=== PATIENT | female | born 1965 | race African-American/Black ===

== ENCOUNTER 2018-06-07 17:10 | Emergency (ER) | payer OTHER ==
--- NOTE | 2018-06-07 17:21 | PDOC ---
Rapid Medical Evaluation Medical Evaluation: Allergies Allergy/AdvReac Type Severity Reaction Status Date / Time shrimp Allergy Verified 12/13/15 21:06 I have performed a brief in-person evaluation of this patient. The patient presents with a chief complaint of: C/O R eye pain, tearing, redness from today. Denies DICKEY, n/v, blurry vision, FB sensation Pertinent physical exam findings: +Mild injection R eye with tearing of eye The patient will proceed to the ED for further evaluation. 06/07/18 17:20
[2018-06-07 17:24] VITALS: BP 140/92; PULSE 85; TEMP 97.9; BMI 40.2
--- NOTE | 2018-06-07 18:03 | PDOC ---
History of Present Illness - General Chief Complaint: Eye Problem Stated Complaint: EYE PROBLEM Time Seen by Provider: 06/07/18 17:44 History Source: Patient Exam Limitations: No Limitations - History of Present Illness Initial Comments: CHIEF COMPLAINT: 53 y/o afebrile female with PMH HTN c/o right eye itching, burning and watery today. HISTORY OF PRESENT ILLNESS: The patient also admits to runny nose and sinus pressure. She took a claritin today but needs something that is going to work "right now". She denies fever, changes in vision, trauma to eye, crusting on eyelids, swelling to eyes, cough, sore throat, n/v/d, CP, SOB, dizziness. The patient does not wear contact lenses. Vital signs on arrival are within normal limits. REVIEW OF SYSTEMS: GENERAL/CONSTITUTIONAL: No fever/chills. No weakness. No weight change. HEAD, EYES, EARS, NOSE AND THROAT: +right eye itching, burning and watery. + runny nose. +sinus pressure. No change in vision. No ear pain or discharge. No sore throat. NEUROLOGIC: No headache, vertigo, loss of consciousness, or loss of sensation. PHYSICAL EXAM: GENERAL: The patient is awake, alert, and fully oriented, in no acute distress. HEAD: Normal with no signs of trauma. Minimal TTP of right frontal sinus. ENT: Pupils equal, round and reactive to light, extraocular movements intact, sclera anicteric, right conjunctiva mildly injected. No proptosis or ptosis. No entrapment. No orbital swelling. Nose without discharge. NEUROLOGICAL: Normal speech, normal gait. CN II-XII grossly intact. Past History - Past Medical History Allergies/Adverse Reactions: Allergies Allergy/AdvReac Type Severity Reaction Status Date / Time shrimp Allergy Verified 06/07/18 17:20 Home Medications: Ambulatory Orders Olopatadine HCl [Patanol] 1 drop OD BID #20 drops 06/07/18 CVA: No COPD: No CHF: No - Immunization History Immunization Up to Date: Yes - Suicide/Smoking/Psychosocial Hx Smoking History: Never smoked Hx Alcohol Use: No Drug/Substance Use Hx: No *Physical Exam - Vital Signs Last Vital Signs Temp Pulse Resp BP Pulse Ox 97.9 F 85 16 140/92 100 06/07/18 17:20 06/07/18 17:20 06/07/18 17:20 06/07/18 17:20 06/07/18 17:20 Moderate Sedation - Procedure Monitoring Vital Signs: Procedure Monitoring Vital Signs Temperature 97.9 F 06/07/18 17:20 Pulse Rate 85 06/07/18 17:20 Respiratory Rate 16 06/07/18 17:20 Blood Pressure 140/92 06/07/18 17:20 O2 Sat by Pulse Oximetry (%) 100 06/07/18 17:20 Medical Decision Making - Medical Decision Making A/P: 53 y/o female with allergic conjunctivitis and nasal congestion with runny nose and sinus pressure. Will give PO ibuprofen in the ER. Will send rx for Patanol eye drops. Will suggest OTC Flonase nasal spray and OTC doris. Pt instructed to f/u with DR. Small if symptoms persist despite medication and return to the ER with any worsening or concerning symptoms. The patient verbalizes understanding of all instructions, has no further questions and is awaiting discharge. *DC/Admit/Observation/Transfer Diagnosis at time of Disposition: Sinus pressure Allergic conjunctivitis and rhinitis Qualifiers: Laterality: right Qualified Code(s): H10.11 - Acute atopic conjunctivitis, right eye; J30.9 - Allergic rhinitis, unspecified - Discharge Dispostion Disposition: HOME Condition at time of disposition: Good - Referrals Referrals: Yovanny Small MD [Primary Care Provider] - Call tomorrow - Patient Instructions Printed Discharge Instructions: DI for Conjunctivitis, DI for Allergic Rhinitis Additional Instructions: Discharge Instructions: -A prescription for eye drops has been sent to your pharmacy; please take as prescribed for 7 days -You can take over the counter Flonase for runny nose/nasal congestion -You can take over the counter doris for sinus pressure -You can take 800mg of over the counter Ibuprofen every 8 hours for pain with food -Drink at least 64oz of water daily -Follow up with Dr. Small in 1 week if no improvement in symptoms despite medication -Return to the ER with any worsening or concerning symptoms - Post Discharge Activity Forms/Work/School Notes: Back to Work
[2018-06-07] MEDS ORDERED: IBUPROFEN 400 MG TABLET (FP) PO ONE ×2 (18:04→18:15)
== END 2018-06-07 18:24 | disposition home or self-care (01) ==
LOC: JERFT 17:10
DX: H10.11 Acute atopic conjunctivitis, right eye (principal); J30.9 Allergic rhinitis, unspecified
CPT/HCPCS: 99281-25

== ENCOUNTER 2019-03-01 16:27 | Emergency (ER) | payer OTHER ==
[2019-03-01 16:46] VITALS: BP 148/93; PULSE 78; TEMP 98.3; BMI 34.4
--- NOTE | 2019-03-01 16:56 | PDOC ---
Rapid Medical Evaluation Time Seen by Provider: 03/01/19 16:54 Medical Evaluation: Allergies Allergy/AdvReac Type Severity Reaction Status Date / Time shrimp Allergy Verified 03/01/19 16:42 Vital Signs Temp Pulse Resp BP Pulse Ox 98.3 F 78 18 148/93 99 03/01/19 16:43 03/01/19 16:43 03/01/19 16:43 03/01/19 16:43 03/01/19 16:43 03/01/19 16:55 Patient c/o: upper abd burning x 3 days, no other complaints Patient on brief exam:mild epigastric tenderness, no ruq tenderness, vss Patient ordered for: labs patient to proceed to the ED Discharge Disposition - Diagnosis Epigastric abdominal pain - Referrals - Patient Instructions - Post Discharge Activity
[2019-03-01] MEDS ORDERED: RANITIDINE HCL 150 MG TABLET (FP) PO ONE (17:41)
[2019-03-01] MEDS ORDERED: MAG HYDROX/AL HYDROX/SIMETH 30 ML UNIT-DOSE CUP PO ONE (17:41)
[2019-03-01 18:09] LABS: HEMATOCRIT 41.2 % (32.4-45.2); HEMOGLOBIN 13.5 GM/dL (10.7-15.3); LYMPH % 37.4 % (8-40); MCH 28.2 pg (25.7-33.7); MCHC 32.8 g/dl (32.0-36.0); MEAN CELL VOLUME 86.1 fl (80-96); MEAN PLT VOLUME 8.8 fl (7.5-11.1); MONO % 6.6 % (3.8-10.2); PLATELET COUNT 279 K/MM3 (134-434); RBC 4.79 M/mm3 (3.60-5.2); RDW 14.3 % (11.6-15.6); WHITE BLOOD COUNT 7.1 K/mm3 (4.0-10.0)
[2019-03-01 18:10] LABS: ALBUMIN 3.6 g/dl (3.4-5.0); BILIRUBIN,TOTAL 0.3 mg/dL (0.2-1); BLOOD UREA NITROGEN 14.8 mg/dL (7-18); CALCIUM 9.3 mg/dL (8.5-10.1); MAGNESIUM 2.5 mg/dL (1.8-2.4); PH,URINE 5.5 (5.0-8.0); POTASSIUM 4.3 mmol/L (3.5-5.1); TOT PROT 7.1 g/dl (6.4-8.2); URINE APPEARANCE CLEAR; URINE BILIRUBIN NEGATIVE (NEGATIVE); URINE COLOR YELLOW; URINE GLUCOSE (UA) NEGATIVE (NEGATIVE); URINE KETONE NEGATIVE (NEGATIVE); URINE LEUK ESTERASE NEGATIVE (NEGATIVE); URINE NITRITE NEGATIVE (NEGATIVE); URINE PROTEIN NEGATIVE (NEGATIVE); URINE UROBILINOGEN 0.2 mg/dL (0.2-1.0)
--- NOTE | 2019-03-01 18:10 | PDOC ---
History of Present Illness - General Chief Complaint: Pain Stated Complaint: ABD/PAIN Time Seen by Provider: 03/01/19 16:54 History Source: Patient Exam Limitations: No Limitations Past History - Past Medical History Allergies/Adverse Reactions: Allergies Allergy/AdvReac Type Severity Reaction Status Date / Time shrimp Allergy Verified 03/01/19 16:42 Home Medications: Ambulatory Orders Ketotifen Fumarate [Zaditor] 1 drop OD BID #20 drops 06/07/18 Olopatadine HCl [Patanol] 1 drop OD BID #20 drops 06/07/18 CVA: No COPD: No CHF: No - Immunization History Immunization Up to Date: Yes - Suicide/Smoking/Psychosocial Hx Smoking History: Never smoked Hx Alcohol Use: No Drug/Substance Use Hx: No *Physical Exam - Vital Signs Last Vital Signs Temp Pulse Resp BP Pulse Ox 98.3 F 78 18 148/93 99 03/01/19 16:43 03/01/19 16:43 03/01/19 16:43 03/01/19 16:43 03/01/19 16:43 - Physical Exam General Appearance: No: Apparent Distress Respiratory/Chest: positive: Lungs Clear, Normal Breath Sounds. negative: Respiratory Distress Cardiovascular: positive: Regular Rhythm, Regular Rate, S1, S2. negative: Murmur Gastrointestinal/Abdominal: positive: Tender (more along RUQ), Soft. negative: Distended, Guarding, Rebound, Hernia, Mass Musculoskeletal: negative: CVA Tenderness Neurologic: positive: Alert, Normal Mood/Affect ED Treatment Course - LABORATORY CBC & Chemistry Diagram: 03/01/19 17:22 03/01/19 17:22 - RADIOLOGY Radiology Studies Ordered: Category Date Time Status ABDOMEN US -LIMITED [US] Stat Ultrasound 03/01/19 17:40 Taken Medical Decision Making - Medical Decision Making 53 y/o F hx of sleep apnea, HTN presents with generalized abd pain, more along upper abdomen which started 2 days after eating a chicken roll which had been left out (unsure if it was possibly bad). Initially thought her symptoms were more constipation so took a laxative, but did not feel difference with that. States drank some Thyme tea which helped a lot with pain. Denies fever, sob, cp , vomiting, diarrhea, urinary complaints. Denies prior abdominal/pelvic surgeries. Possible gastritis; also r/o cholecystitis, cholelithiasis, pancreatitis Plan: labs, zantac, maalox, RUQ sono, reassess 03/01/19 18:08 Labs reviewed and unremarkable RUQ sono - no gallstones, minimal GB thickening (per radiologist, could be physiologic in nature) Patient appears comfortable, currently in no pain stable for dc 03/01/19 18:54 *DC/Admit/Observation/Transfer Diagnosis at time of Disposition: Epigastric abdominal pain - Discharge Dispostion Disposition: HOME Condition at time of disposition: Stable Decision to Admit order: No - Referrals Referrals: Yovanny Small MD [Primary Care Provider] - 2 Days - Patient Instructions Printed Discharge Instructions: DI for Gastritis, DI for Epigastric Pain Additional Instructions: Thank you for choosing [facility]. It was a pleasure taking care of you. Take Pepcid 20 mg twice a day in case you need for your symptoms Avoid NSAIDs like Motrin, Naprosyn for now Follow-up with your doctor in 2 days Return to the Emergency Department if your symptoms worsen or persist, you have fever, shortness of breath, chest pain, severe abdominal pain, vomiting or other concerning symptoms. - Post Discharge Activity
[2019-03-01] MEDS ORDERED: RANITIDINE HCL 150 MG TABLET (FP) ONE (18:19)
[2019-03-01] MEDS ORDERED: MAG HYDROX/AL HYDROX/SIMETH 30 ML UNIT-DOSE CUP ONE (18:19)
== END 2019-03-01 19:18 | disposition home or self-care (01) ==
LOC: JER 16:27
DX: R10.13 Epigastric pain (principal); I10 Essential (primary) hypertension
CPT/HCPCS: 36415; 76705-TC; 80053; 81003; 83690; 83735; 85025; 87086; 99282-25

== ENCOUNTER 2019-04-08 08:30 | Inpatient (IN) | payer OTHER ==
[2019-04-04 17:09] VITALS: BMI 38.4
[2019-04-08] MEDS ORDERED: MIDAZOLAM HCL 2 MG/2 ML SINGLE DOSE VIAL ONE (08:34)
[2019-04-08] MEDS ORDERED: DEXAMETHASONE SOD PHOSPHATE/PF 10 MG/ML SDV ONE (08:34)
[2019-04-08] MEDS ORDERED: BUPIVACAINE HCL/PF 0.5% (5 MG/ML) 30 ML VIAL IJ ONE (08:34)
--- NOTE | 2019-04-08 09:26 | HP ---
Admitting History and Physical - Admission Chief Complaint: Morbid obesity History Source: Patient Limitations to Obtaining History: No Limitations - Past Medical History Cardiovascular: Yes: HTN Pulmonary: Yes: Sleep Apnea - Past Surgical History Additional Past Surgical History: Keloid excision D+C - Smoking History Smoking history: Never smoked - Alcohol/Substance Use Hx Alcohol Use: No Home Medications - Allergies Allergies/Adverse Reactions: Allergies Allergy/AdvReac Type Severity Reaction Status Date / Time shrimp Allergy Verified 03/01/19 16:42 seasonal Allergy Uncoded 04/04/19 17:02 - Home Medications Home Medications: Ambulatory Orders Amlodipine Besylate [Norvasc -] 5 mg PO DAILY 04/04/19 Losartan Potassium [Cozaar -] 25 mg PO DAILY 04/04/19 Multivitamin [Zoo Chews] 1 each PO DAILY 04/04/19 Docusate Sodium [Colace -] 100 mg PO TID #90 capsule 04/08/19 Famotidine [Pepcid] 20 mg PO BID #60 tablet 04/08/19 Ondansetron [Zofran -] 8 mg PO TID #30 tablet 04/08/19 Oxycodone HCl/Acetaminophen [Percocet 5-325 mg Tablet] 1 - 2 tab PO Q6H #28 tab MDD 4 04/08/19 Family Medical History Family History: Unremarkable Review of Systems - Review of Systems Constitutional: denies: Chills, Fever Neck: reports: No Symptoms Cardiovascular: reports: No Symptoms Respiratory: reports: No Symptoms Gastrointestinal: reports: No Symptoms Neurological: reports: No Symptoms Pain Intensity: 0 Physical Examination Vital Signs: Vital Signs Temperature 98.5 F 04/08/19 08:54 Pulse Rate 80 04/08/19 08:54 Respiratory Rate 18 04/08/19 08:54 Blood Pressure 138/92 04/08/19 08:54 O2 Sat by Pulse Oximetry (%) Constitutional: Yes: Calm Neck: Yes: WNL Cardiovascular: Yes: WNL Respiratory: Yes: Regular Gastrointestinal: Yes: Soft, Abdomen, Obese Neurological: Yes: Alert, Oriented Problem List - Problems (1) Morbid obesity due to excess calories Problems reviewed: Yes Code(s): E66.01 - MORBID (SEVERE) OBESITY DUE TO EXCESS CALORIES (2) BMI 38.0-38.9,adult Problems reviewed: Yes Code(s): Z68.38 - BODY MASS INDEX (BMI) 38.0-38.9, ADULT (3) Sleep apnea Code(s): G47.30 - SLEEP APNEA, UNSPECIFIED Qualifiers: Sleep apnea type: unspecified type Qualified Code(s): G47.30 - Sleep apnea , unspecified Assessment/Plan Laparoscopic possible open vertical sleeve gastrectomy possible liver biopsy, upper endoscopy
[2019-04-08] MEDS ORDERED: PROPOFOL 20 ML ONE ×2 (09:52)
[2019-04-08] MEDS ORDERED: ROCURONIUM BROMIDE 50 MG/5 ML SYRINGE ONE (09:52)
[2019-04-08] MEDS ORDERED: BUPIVACAINE HCL 0.25% 125 MG/50 ML VIAL ONE (10:10)
[2019-04-08] MEDS ORDERED: PHENYLEPHRINE HCL 10 MG/1 ML SINGLE DOSE VIAL ONE (10:49)
[2019-04-08] MEDS ORDERED: ePHEDrine SULFATE 50 MG/1 ML AMPULE ONE (10:56)
[2019-04-08] MEDS ORDERED: EPHEDRINE SULFATE/0.9% NACL/PF 50 MG/10 ML SYRINGE NR ONE (10:57)
[2019-04-08] MEDS ORDERED: FAMOTIDINE 20 MG/50 ML IVPB 20 MG/50 ML MG IVPB ONE (11:14)
[2019-04-08] MEDS ORDERED: METOCLOPRAMIDE HCL INJECTION 10 MG/2 ML VIAL ONE (11:14)
[2019-04-08] MEDS ORDERED: ONDANSETRON 4 MG/2 ML VIAL ONE (11:14)
[2019-04-08] MEDS ORDERED: ACETAMINOPHEN INJECTION 100 ML IVPB ONE (11:14)
[2019-04-08] MEDS ORDERED: BUPIVACAINE HCL/PF 0.25% (2.5MG/ML) 10 ML VIAL IJ ONE (11:20)
[2019-04-08] MEDS ORDERED: GLYCOPYRROLATE 0.2 MG/1 ML VIAL ONE (11:43)
[2019-04-08] MEDS ORDERED: NEOSTIGMINE METHYLSULFATE 0.5 MG/ML - 10 ML MDV ONE (11:43)
[2019-04-08] MEDS ORDERED: ceFAZolin SODIUM 1 GM VIAL ONE (11:43)
--- NOTE | 2019-04-08 11:54 | OP ---
Operative Note - Note: Operative Date: 04/08/19 Pre-Operative Diagnosis: Morbid obesity. BMI 38. Sleep apnea Operation: Diagnostic laparoscopy. Laparoscopic vertical sleeve gastrectomy. Laparoscopic wedge liver biopsy Post-Operative Diagnosis: Same as Pre-op (as well as hepatomegaly) Surgeon: Warner Yang Real Time Trader: Jordan Fontanez Anesthesia: General Specimens Removed: Greater curvature of stomach. Liver biopsy Estimated Blood Loss (mls): 30 Drains & Tubes with Location: 36 Fr Bougie Operative Report Dictated: Yes
[2019-04-08] MEDS ORDERED: SODIUM CHLORIDE 1,000 ML IV SCH (12:00)
[2019-04-08] MEDS ORDERED: METOCLOPRAMIDE HCL INJECTION 10 MG/2 ML VIAL IVPUSH SCH (12:00)
[2019-04-08] MEDS ORDERED: ACETAMINOPHEN 1000 MG/100 ML VIAL (NON FORMULARY) IVPB SCH (12:00)
[2019-04-08] MEDS ORDERED: ONDANSETRON 4 MG/2 ML VIAL IVPUSH SCH (12:00)
[2019-04-08] MEDS ORDERED: FAMOTIDINE 20 MG PREMIXED IVPB IVPB ONE (12:15)
[2019-04-08] MEDS ORDERED: LACTATED RINGERS SOLUTION 1,000 ML IV SCH (12:15)
[2019-04-08 13:42] LABS: HEMATOCRIT 41.6 % (32.4-45.2); HEMOGLOBIN 13.8 GM/dl (10.7-15.3); MCH 28.6 pg (25.7-33.7); MCHC 33.2 g/dl (32.0-36.0); MEAN CELL VOLUME 86.1 fl (80-96); MEAN PLT VOLUME 8.5 fl (7.5-11.1); PLATELET COUNT 310 K/MM3 (134-434); RBC 4.83 M/mm3 (3.60-5.2); WHITE BLOOD COUNT 13.2 K/mm3 (4.0-10.8)
[2019-04-08 14:26] LABS: ALBUMIN 3.8 g/dl (3.4-5.0); BILIRUBIN,TOTAL 0.4 mg/dl (0.2-1); CALCIUM 8.9 mg/dl (8.5-10); CREATININE 0.9 mg/dl (0.55-1.3); TOT PROT 7.2 g/dl (6.4-8.2)
[2019-04-08] MEDS: KCL 10 MEQ IVPB 10 MEQ/100 ML INFUS.BAG IVPB SCH ×3 (15:34→21:06)
--- NOTE | 2019-04-08 15:50 | SPEC ---
DATE OF OPERATION: 04/08/2019 SURGEON: Jenna Yang MD INSURANCE CODER: Jordan Fontanez MD PLACE OF SERVICE: [facility], [address] [place] [address] PREOPERATIVE DIAGNOSES: 1. Morbid obesity. 2. Body mass index of 13.4. 3. Obstructive sleep apnea. POSTOPERATIVE DIAGNOSES: 1. Morbid obesity. 2. Body mass index of 13.4. 3. Obstructive sleep apnea. 4. Hepatomegaly. PROCEDURES: 1. Diagnostic laparoscopy. 2. Laparoscopic vertical sleeve gastrectomy. 3. Laparoscopic wedge liver biopsy. SPECIMENS: 1. Greater curvature of the stomach. 2. Liver biopsy. ESTIMATED BLOOD LOSS: 30 mL. DRAINS: None. ANESTHESIA: GET. BOUGIE SIZE: 36-Kinyarwanda. REASON FOR PROCEDURE: This 54-year-old female presents to the office for weight loss options. After describing different options, she decided to proceed with a laparoscopic, possible open, vertical sleeve gastrectomy, possible liver biopsy, upper endoscopy. The patient was seen by the respective subspecialties and cleared for surgery. The risks and benefits of the procedure were explained. These included bleeding, infection, hernia, CA, DVT, PE, injury to surrounding structures including the liver, colon, bowel, spleen, esophagus, vessel injury, nerve injury, weight regain, gastric leak, staple line leak, sleeve leak, obstruction, vitamin deficiency, hair loss and as some of the possible complications. The patient understood and signed informed consent. DESCRIPTION OF PROCEDURE: The patient was placed supine on the operating room table. The patient underwent general endotracheal intubation. The arms were brought out at 90 degrees and secured. A footboard was placed and the legs were secured laterally with padding. The abdomen was prepped and draped in the usual sterile fashion. A timeout was performed. An incision was made in the left upper quadrant and a Veress needle inserted. Pneumoperitoneum was established. Subsequently, the Veress needle was removed and a 5-mm trocar was placed under direct visualization with the laparoscope. The laparoscopic camera was then inserted and inspection of the abdominal cavity was performed. An incision was then made in the supraumbilical area and a 15-mm trocar was placed under direct visualization. A 5-mm trocar was then placed in the right upper quadrant and a 5-mm trocar was placed below the left subcostal margin. A stab wound was made in the subxiphoid area and a Amada clamp inserted and removed to dilate the tract. A Radha liver retractor was inserted. The post was secured at the bedside by the nursing staff. The patient was placed in steep reverse Trendelenburg position and the Radha liver retractor was used to secure the liver towards the anterior abdominal wall. The pylorus was identified and 6 cm proximal to it, the lesser sac was entered using the LigaSure device. All lateral attachments to the greater curvature of the stomach, including the short gastric vessels, were ligated using the LigaSure device toward the gastrosplenic and gastrophrenic ligaments. Once this was done in its entirety, it was confirmed that all tubes within the nasal or oropharyngeal cavity, including a temperature probe were removed by Anesthesia. The bougie was then inserted by Anesthesia. Transection of the stomach was then begun staying adjacent to the bougie but away from the angularis. Transection of the stomach was performed near the portion of the stomach where the lesser sac was entered. Two laparoscopic Endo-DIONE black tom were used at this location. Laparoscopic Endo DIONE purple staple loads were then used for the remainder of the transection until the greater curvature of the stomach was fully transected. This was done staying close to the bougie. Care was taken to stay away from the angle of His cephalad. The staple line was then inspected. Hemostasis was identified. A leak test was then performed. It was clamped distally to the staple line. Irrigation solution was placed in the left upper quadrant and air was insufflated by Anesthesia into the sleeve. No leaks were identified. No obstruction was identified. This was done through the entirety of the staple line. The stomach was suctioned and the bougie removed fully intact under direct visualization. At this point, the irrigation solution was suctioned and again, hemostasis was noted. A wedge liver biopsy was then performed. The left lobe of the liver was identified. A portion of the edge of the left lobe of the liver was grasped. Using electrocautery, a wedge of the left liver was excised. The specimen was removed and sent off the field. Hemostasis of the wedge liver biopsy site was attained and noted using electrocautery. The 15-mm supraumbilical trocar was then removed and the greater curvature specimen removed from the site using a sponge stick gil. A Erick-Mathew device was then used to close the fascia with a 0 Vicryl suture at the site. Again, hemostasis was noted. The Radha liver retractor was then removed under direct visualization. Pneumoperitoneum was desufflated. Hemostasis was noted at all incision sites and Marcaine was injected at all incision sites. A 3-0 Vicryl suture was used to close the deep subcutaneous tissue at the 15-mm incision site. All incision sites were closed using 4-0 Biosyn. Sterile dressings were applied. The patient tolerated the procedure well and was transferred to the recovery room in stable condition. JENNA YANG M.D. TRACEE/[id number]
[2019-04-08] MEDS: HYDROmorphone HCL CARPU-JECT 1 MG/1 ML DISP.SYRIN IVPB PRN (15:55)
[2019-04-08] MEDS: ONDANSETRON 4 MG/2 ML VIAL IVPUSH SCH ×3 (17:14→23:41)
[2019-04-08] MEDS: METOCLOPRAMIDE HCL INJECTION 10 MG/2 ML VIAL IVPUSH SCH ×2 (18:47→23:41)
[2019-04-08] MEDS: ACETAMINOPHEN 1000 MG/100 ML VIAL (NON FORMULARY) IVPB SCH ×2 (20:30→23:41)
[2019-04-08] MEDS: FAMOTIDINE 20 MG/50 ML IVPB 20 MG/50 ML MG IVPB SCH (21:05)
[2019-04-08] MEDS: ENOXAPARIN NA (PORCINE) 40 MG/0.4 ML DISP.SYRIN SQ SCH (21:05)
[2019-04-09] MEDS: HYDROmorphone HCL CARPU-JECT 1 MG/1 ML DISP.SYRIN IVPB PRN (05:24)
[2019-04-09] MEDS: ONDANSETRON 4 MG/2 ML VIAL IVPUSH SCH ×3 (05:24→13:53)
[2019-04-09] MEDS: ACETAMINOPHEN 1000 MG/100 ML VIAL (NON FORMULARY) IVPB SCH (05:35)
[2019-04-09 07:07] LABS: HEMOGLOBIN 12.4 GM/dl (10.7-15.3); MCHC 32.7 g/dl (32.0-36.0); MEAN CELL VOLUME 85.6 fl (80-96); MEAN PLT VOLUME 8.3 fl (7.5-11.1); PLATELET COUNT 292 K/MM3 (134-434); RBC 4.44 M/mm3 (3.60-5.2); RDW 12.9 % (11.6-15.6); WHITE BLOOD COUNT 12.5 K/mm3 (4.0-10.8)
[2019-04-09] MEDS: METOCLOPRAMIDE HCL INJECTION 10 MG/2 ML VIAL IVPUSH SCH ×2 (07:10→13:53)
[2019-04-09 07:24] LABS: ALBUMIN 3.5 g/dl (3.4-5.0); BILIRUBIN,TOTAL 0.5 mg/dl (0.2-1); CREATININE 0.8 mg/dl (0.55-1.3); TOT PROT 6.7 g/dl (6.4-8.2)
--- NOTE | 2019-04-09 07:43 | DS ---
Physical Exam: SUBJECTIVE: Patient seen and examined OBJECTIVE: Vital Signs Temperature 98.6 F 04/09/19 05:00 Pulse Rate 101 H 04/09/19 05:00 Respiratory Rate 19 04/09/19 05:00 Blood Pressure 137/74 04/09/19 05:00 O2 Sat by Pulse Oximetry (%) 100 04/09/19 06:35 PHYSICAL EXAM GENERAL: The patient is awake, alert, and fully oriented, in no acute distress. HEAD: Normal with no signs of trauma. EYES: PERRL, extraocular movements intact, sclera anicteric, conjunctiva clear. NECK: Trachea midline LUNGS: Breath sounds equal, clear to auscultation bilaterally, no wheezes, no crackles, no accessory muscle use. HEART: Regular rate and rhythm ABDOMEN: Soft, nontender, nondistended, no guarding, no rebound, no hepatosplenomegaly, no masses. EXTREMITIES: warm, well-perfused, no edema. NEUROLOGICAL: Cranial nerves II through XII grossly intact. Normal speech, gait not observed. PSYCH: Normal mood, normal affect. SKIN: Warm, dry, normal turgor, no rashes or lesions noted. LABS CBC,CMP WBC 12.5 K/mm3 (4.0-10.8) H 04/09/19 07:00 RBC 4.44 M/mm3 (3.60-5.2) 04/09/19 07:00 Hgb 12.4 GM/dl (10.7-15.3) 04/09/19 07:00 Hct 38.0 % (32.4-45.2) 04/09/19 07:00 MCV 85.6 fl (80-96) 04/09/19 07:00 MCH 28.0 pg (25.7-33.7) 04/09/19 07:00 MCHC 32.7 g/dl (32.0-36.0) 04/09/19 07:00 RDW 12.9 % (11.6-15.6) 04/09/19 07:00 Plt Count 292 K/MM3 (134-434) 04/09/19 07:00 MPV 8.3 fl (7.5-11.1) 04/09/19 07:00 Sodium 140 mmol/L (136-145) 04/09/19 07:00 Potassium 4.0 mmol/L (3.5-5.1) 04/09/19 07:00 Chloride 107 mmol/L (98-107) 04/09/19 07:00 Carbon Dioxide 25 mmol/L (21-32) 04/09/19 07:00 Anion Gap 8 MMOL/L (8-16) 04/09/19 07:00 BUN 8.0 mg/dl (7-18) 04/09/19 07:00 Creatinine 0.8 mg/dl (0.55-1.3) 04/09/19 07:00 Est GFR (CKD-EPI)AfAm 95.52 04/09/19 07:00 Est GFR (CKD-EPI)NonAf 82.42 04/09/19 07:00 Random Glucose 118 mg/dl (74-106) H 04/09/19 07:00 Calcium 9.0 mg/dl (8.5-10) 04/09/19 07:00 Total Bilirubin 0.5 mg/dl (0.2-1) 04/09/19 07:00 AST 44 U/L (15-37) H 04/09/19 07:00 ALT 52 U/L (13-61) 04/09/19 07:00 Alkaline Phosphatase 68 U/L (45-117) D 04/09/19 07:00 Total Protein 6.7 g/dl (6.4-8.2) 04/09/19 07:00 Albumin 3.5 g/dl (3.4-5.0) 04/09/19 07:00 HOSPITAL COURSE: Date of Admission:04/08/19 Date of Discharge: 04/09/19 HOSPITAL COURSE: The patient was admitted to the Med-Surg Unit after elective bariatric surgery. Now, s/p laparoscopic vertical sleeve gastrectomy. The day of surgery, the patient ambulated the hallways with assistance. The patient was monitored with remote tele/continuous pulse ox. Narcotic and non-narcotic pain management control was achieved with oral and IV pain control. Upper GI series was obtained the following morning and no leak, extravastion or gastric outlet obstruction. Started on a Bariatric Stage 1 diet and tolerated well. Abi-operative IV ABX were administered in addition to GI prophylaxis. DVT prophylaxis was achieved with SCDs and early ambulation. The discharge instructions and an oral pain management plan were reviewed with the patient. All questions answered. Above plan discussed with Dr. Yang and agreed. Minutes to complete discharge: 20
--- NOTE | 2019-04-09 09:10 | PN ---
Progress Note (short form) - Note Progress Note: Anesthesia Post op Pt seen and exmained S:Alert and awake O: Vital Signs Temperature 98.6 F 04/09/19 05:00 Pulse Rate 101 H 04/09/19 05:00 Respiratory Rate 04/09/19 05:00 Blood Pressure 137/74 04/09/19 05:00 O2 Sat by Pulse Oximetry (%) 100 04/09/19 06:35 CBC, BMP 04/09/19 07:00 04/09/19 07:00 a/p: Current Active Problems BMI 38.0-38.9,adult (Acute) Hepatomegaly (Acute) Morbid obesity due to excess calories (Acute) Sleep apnea (Acute) s/p gatric sleeve Doing well post op Continue current care Kev Castillo MD
[2019-04-09] MEDS ORDERED: LOSARTAN POTASSIUM 25 MG TABLET PO SCH (10:00)
[2019-04-09] MEDS ORDERED: amLODIPine BESYLATE 5 MG TABLET (FP) PO SCH (10:00)
[2019-04-09] MEDS: FAMOTIDINE 20 MG/50 ML IVPB 20 MG/50 ML MG IVPB SCH (10:24)
[2019-04-09] MEDS: ENOXAPARIN NA (PORCINE) 40 MG/0.4 ML DISP.SYRIN SQ SCH (10:24)
[2019-04-09] MEDS ORDERED: oxyCODONE HCL 5 MG TABLET PO PRN (11:47)
[2019-04-09] MEDS ORDERED: SODIUM CHLORIDE 1,000 ML IV SCH (12:00)
[2019-04-09 14:43] VITALS: BP 141/83; PULSE 99; TEMP 99
--- NOTE | 2019-04-10 16:16 | PATH ---
Surgical Pathology Report Patient Name: DEQUAN SOTOMAYOR Med. Rec. #: [id number] /Age/Gender: 1965 (Age: 54) / F Account: [id number] Location: [facility] Taken: 04/08/2019 Received: 04/08/2019 Reported: 04/10/2019 Physicians: Warner Yang M.D. Specimen(s) Received A: GREATER CURVATURE STOMACH B: LIVER BIOPSY Clinical History Morbid obesity Final Diagnosis A. GREATER CURVATURE OF STOMACH, LAPAROSCOPIC GASTRIC SLEEVE EXCISION: PORTION OF STOMACH SHOWING MILD CHRONIC MUCOSAL INFLAMMATION. IMMUNOSTAIN IS NEGATIVE FOR H. PYLORI ORGANISMS. B. LIVER, BIOPSY: LIVER SHOWING MINIMAL STEATOSIS (< 5%). TRICHROME STAIN SHOWS NO APPRECIABLE INCREASE IN FIBROSIS. IRON STAIN SHOWS NO INCREASE IN IRON DEPOSITS. Electronically Signed Kathleen Merlos M.D. Gross Description A. Received in formalin, labeled "greater curvature of stomach," is a 71 gram, 17.5 x 3.0 x 2.5 cm. portion of stomach with a stapled margin of resection. The serosa is snow-flood with minimal attached fat. The mucosa is snow-pink with normal folds. No mucosal masses are identified. Fitter Machinist sections are submitted in one cassette. B. Received in formalin labeled "liver biopsy," is a 4.1 x 1.4 x 0.6 cm snow portion of soft tissue, consistent with a liver biopsy. Fitter Machinist sections are submitted in one cassette. /04/09/2019 saudi04/09/2019
== END 2019-04-09 16:50 | disposition home or self-care (01) | DRG 403 ==
LOC: FM/S 08:30
PROVIDERS: ADMIT Surgery; ATTEND Surgery
PROC: 0DJ04ZZ Inspection of Upper Intestinal Tract, Percutaneous Endoscopic Approach (ICD-10-PCS; 2019-04-08)
PROC: 0DB64Z3 Excision of Stomach, Percutaneous Endoscopic Approach, Vertical (ICD-10-PCS; principal; 2019-04-08 10:46)
PROC: 0FB24ZX Excision of Left Lobe Liver, Percutaneous Endoscopic Approach, Diagnostic (ICD-10-PCS; 2019-04-08 10:46)
DX: E66.01 Morbid (severe) obesity due to excess calories (principal); Z68.37 Body mass index [BMI] 37.0-37.9, adult; I10 Essential (primary) hypertension; G47.30 Sleep apnea, unspecified; R16.0 Hepatomegaly, not elsewhere classified
CPT/HCPCS: 36415; 74241-TC-FY; 80053; 85027; 88305-TC; 94760; J0131; J7030

== ENCOUNTER 2021-01-26 20:09 | Emergency (ER) | payer OTHER ==
[2021-01-26 21:03] VITALS: BP 150/85; PULSE 63; TEMP 98.1; BMI 30.2
[2021-01-26 22:28] LABS: BASO % 1.1 % (0-2.0); EOS % 7.3 % (0-4.5); HEMATOCRIT 38.2 % (32.4-45.2); LYMPH % 37.1 % (8-40); MCH 29.4 pg (25.7-33.7); MEAN CELL VOLUME 86.5 fl (80-96); MEAN PLT VOLUME 7.8 fl (7.5-11.1); MONO % 7.3 % (3.8-10.2); NEUT % 47.2 % (42.8-82.8); PLATELET COUNT 258 10^3/uL (134-434); RBC 4.42 M/mm3 (3.60-5.2); RDW 14.2 % (11.6-15.6); WHITE BLOOD COUNT 5.6 K/mm3 (4.0-10.0)
[2021-01-26 22:48] LABS: ALBUMIN 3.9 g/dl (3.4-5.0); BLOOD UREA NITROGEN 16.2 mg/dL (7-18); MAGNESIUM 2.5 mg/dL (1.8-2.4)
[2021-01-26 22:53] LABS: BILIRUBIN,TOTAL 0.5 mg/dL (0.2-1); TOT PROT 7.4 g/dl (6.4-8.2)
== END 2021-01-26 22:00 | disposition home or self-care (01) ==
LOC: JERFT 20:09
DX: M79.604 Pain in right leg (principal); M79.605 Pain in left leg
CPT/HCPCS: 36415; 80053; 83735; 85025; 93970-TC; 99284-25

== ENCOUNTER 2021-12-12 07:13 | Emergency (ER) | payer OTHER ==
[2021-12-12 07:18] VITALS: BP 142/84; PULSE 75; TEMP 97; BMI 32.9
[2021-12-12] MEDS ORDERED: TETRACAINE 0.5% OPHTH SOLN 2 ML BOTTLE OU ONE (08:04)
[2021-12-12] MEDS ORDERED: FLUORESCEIN NA 1 EA STRIP OU ONE (08:04)
[2021-12-12] MEDS ORDERED: TETRACAINE 0.5% OPHTH SOLN 2 ML BOTTLE ONE (08:09)
[2021-12-12] MEDS ORDERED: FLUORESCEIN NA 1 EA STRIP ONE ×2 (08:09→08:49)
== END 2021-12-12 11:49 | disposition home or self-care (01) ==
LOC: JER 07:13
DX: H02.813 Retained foreign body in right eye, unspecified eyelid (principal); T15.01XA Foreign body in cornea, right eye, initial encounter; Z77.098 Contact with and (suspected) exposure to other hazardous, chiefly nonmedicinal, chemicals
CPT/HCPCS: 99283-25

== ENCOUNTER 2022-07-14 15:59 | Emergency (ER) | payer OTHER ==
[2022-07-14 16:13] VITALS: BP 157/91; PULSE 72; RESP 18; TEMP 98.6; BMI 34.7
[2022-07-14] MEDS ORDERED: METHOCARBAMOL 500 MG TABLET PO ONE (18:08)
[2022-07-14] MEDS ORDERED: KETOROLAC TROMETHAMINE 30 MG/1 ML VIAL IM ONE (18:08)
[2022-07-14] MEDS ORDERED: KETOROLAC TROMETHAMINE 30 MG/1 ML VIAL ONE (18:35)
[2022-07-14] MEDS ORDERED: METHOCARBAMOL 500 MG TABLET ONE (18:35)
== END 2022-07-14 19:15 | disposition home or self-care (01) ==
LOC: JERFT 15:59
PROC: 3E023GC Introduction of Other Therapeutic Substance into Muscle, Percutaneous Approach (ICD-10-PCS; principal; 2022-07-14)
DX: M54.50 Low back pain, unspecified (principal)
CPT/HCPCS: 99284-25

== ENCOUNTER 2022-11-09 21:22 | Emergency (ER) | payer OTHER ==
[2022-11-09 21:33] VITALS: BP 129/79; PULSE 72; RESP 18; TEMP 98.1; BMI 32.9
== END 2022-11-09 22:50 | disposition home or self-care (01) ==
LOC: JERFT 21:22
DX: Z77.098 Contact with and (suspected) exposure to other hazardous, chiefly nonmedicinal, chemicals (principal)
CPT/HCPCS: 99283-25

== ENCOUNTER 2024-08-06 14:32 | Emergency (ER) | payer OTHER ==
[2024-08-06 14:36] VITALS: BP 134/100; PULSE 50; RESP 18; TEMP 97.7; BMI 32.9
[2024-08-06] MEDS ORDERED: KETOROLAC TROMETHAMINE 30 MG/1 ML VIAL ONE (15:30)
[2024-08-06] MEDS: KETOROLAC TROMETHAMINE 30 MG/1 ML VIAL IM ONE (15:36)
== END 2024-08-06 16:35 | disposition home or self-care (01) ==
LOC: JERFT 14:32
PROC: 3E0233Z Introduction of Anti-inflammatory into Muscle, Percutaneous Approach (ICD-10-PCS; principal; 2024-08-06)
DX: M25.461 Effusion, right knee (principal); M25.561 Pain in right knee; X50.1XXA Overexertion from prolonged static or awkward postures, initial encounter
CPT/HCPCS: 73562-TC-RT-FY; 99284-25